=== PATIENT | female | born 1995 | race Caucasian/White ===

== ENCOUNTER → 2021-07-21 | Outpatient (CLI) | payer BC ==
--- NOTE | 2021-07-21 18:08 | Diagnostic Imaging Report ---
INDICATION: Supervision of normal . Anatomy scan. TECHNIQUE: Multiple real-time grayscale images were obtained over the gravid uterus. COMPARISON: None FINDINGS: A single live intrauterine gestation is visualized in cephalic presentation. heart tones measure 149 BPM. The placenta is anterior/fundal. The amniotic fluid is visually normal, although no measurements were performed. The kidneys, bladder, stomach, brain, four-chamber heart, three-vessel cord, spine, and cord insertion are visualized and have a normal appearance. Cervical length measures 3.7 cm. Biometrical measurements are as follows: Biparietal 5.33 cm, age 22 weeks 2 days. Head circumference 19.26 cm, age 21 weeks 4 days. Abdominal circumference 15.44 cm, age 20 weeks 5 days. Femur length 3.36 cm, age 20 weeks 4 days. Sonographic estimate age: 21 weeks 2 days. Sonographic estimated date of delivery: 11/29/2021. Estimated Weight: 373 gm (+/- 55 gm). LMP percentile: 54%. heart rate: 149 beats per minute. number: 1 of 1. IMPRESSION: 1. Single live intrauterine gestation measuring 21 weeks 2 days with an estimated due date of 11/29/2021. These are within range with the clinical dates. Recommend continued follow-up as indicated. 2. No anatomic abnormalities are identified on this exam. Dictated by: Dictated on workstation # [id number]
== END ==
LOC: RAD 15:00
PROVIDERS: ATTEND Obstetrics & Gynecology
DX: Z34.02 Encounter for supervision of normal first pregnancy, second trimester (principal); Z3A.21 21 weeks gestation of pregnancy
CPT/HCPCS: 76805

== ENCOUNTER 2021-11-17 18:27 | Inpatient (IN) | payer BC ==
[~2021-11-17] VITALS: Ht 160 cm; Wt 97.7 kg
[2021-11-17] VITALS (21 sets, daily range): BP systolic 99–177; BP diastolic 58–90
[2021-11-17 19:25] LABS: BASOPHILS % (AUTO) 0 % (0-10); EOSINOPHILS # (AUTO) 0.1 10^3/uL (0.0-0.3); EOSINOPHILS % (AUTO) 0 % (0-10); HEMATOCRIT 35 % (35-52); LYMPHOCYTES # (AUTO) 1.7 10^3/uL (1.0-4.0); LYMPHOCYTES % (AUTO) 15 % (12-44); MEAN CORPUSCULAR HEMOGLOBIN 30 pg (25-34); MEAN CORPUSCULAR HGB CONC 35 g/dL (32-36); MEAN CORPUSCULAR VOLUME 87 fL (80-99); MEAN PLATELET VOLUME 8.8 fL (9.0-12.2); MONOCYTES # (AUTO) 0.6 10^3/uL (0.0-1.0); MONOCYTES % (AUTO) 5 % (0-12); NEUTROPHILS # (AUTO) 8.7 10^3/uL (1.8-7.8); NEUTROPHILS % (AUTO) 78 % (42-75); PLATELET COUNT 287 10^3/uL (130-400); WHITE BLOOD COUNT 11.2 10^3/uL (4.3-11.0)
[2021-11-17] MEDS: D5 LR IV SOLUTION 1,000 ML IV SCH (19:38)
[2021-11-17] MEDS ORDERED: BUPIVACAINE 0.25% 30 ML (SENSORCAINE) VIAL ONE ×2 (21:20→22:22)
[2021-11-17] MEDS ORDERED: fentaNYL INJ 100 MCG/2 ML AMP ONE ×3 (21:20→22:31)
[2021-11-17] MEDS ORDERED: OXYTOCIN PRE-MIX DRIP 500 ML IV ONE ×2 (21:49→23:42)
[2021-11-17] MEDS ORDERED: LIDOCAINE/EPI 2% 1:200,00 (XYLOCAINE) 10 ML VIAL ONE (21:49)
[2021-11-17] MEDS ORDERED: CATHETER FLUSH 10 ML SYR IV SCH (22:00)
[2021-11-17] MEDS ORDERED: fentaNYL 2 mcg/ml BUPIVA 0.125 0 ML ONE (22:24)
[2021-11-17] MEDS: OXYTOCIN PRE-MIX DRIP 500 ML IV SCH ×2 (23:00→23:50)
[2021-11-17] MEDS ORDERED: METHYLERGONOVINE 0.2 MG/ML (METHERGINE) AMP ONE (23:24)
[2021-11-17] MEDS ORDERED: DIBUCAINE 1% OINTMENT 30 GM TUBE TOP PRN (23:30)
[2021-11-17] MEDS ORDERED: WITCH HAZEL(TUCKS) 40 EA JAR TOP PRN (23:30)
[2021-11-17] MEDS ORDERED: BENZOCAINE/MENTHOL (DERMOPLAST) 56 ML CAN TP PRN (23:30)
[2021-11-17] MEDS ORDERED: TETANUS,DIPTH,PERTUSS P/F (BOOSTRIX) 0.5 ML VIAL IM ONE (23:30)
[2021-11-17] MEDS ORDERED: MEASLES,MUMPS,RUBELLA 1 EA INJ SQ ONE (23:30)
[2021-11-17] MEDS ORDERED: NALOXONE 0.4 MG/ML 1 ML (NARCAN) VIAL IV PRN (23:30)
[2021-11-18] VITALS (9 sets, daily range): BP systolic 114–158; BP diastolic 58–90
[2021-11-18] MEDS ORDERED: ONDANSETRON 4 MG/2 ML (SDV) Z0FRAN ONE (00:02)
--- NOTE | 2021-11-18 00:47 | History & Physical-OB ---
OB - Chief Complaint & HPI Date/Time Date of Admission: Date of Admission: Nov 17, 2021 at 18:27 Date seen by a Provider: Nov 17, 2021 Time Seen by a Provider: 16:00 Chief Complaint/History OB-Reason for Admission/Chief: Onset of Labor Hx : 1 Hx Para: 0 Expected Date of Delivery: Dec 04, 2021 Gestational Age in Weeks: 37 Gestational Age in Days: 4 Admission Nurse Assessment Rev: Yes Allergies and Home Medications Allergies Coded Allergies: amoxicillin (Verified Allergy, Mild, Rash, 11/17/21) Patient Home Medication List Home Medication List Reviewed: Yes OB - History Hx of Present Care: Yes Ultrasounds: Normal mid trimester US Obstetrical Complications: None Medical Complications: None Patient Past Medical History n/a OB - Admission Exam Physical Exam Vitals: Vital Signs 11/17/21 19:00 Temp 36.8 Pulse 120 Resp 18 B/P (MAP) 128/86 (100) O2 Delivery Room Air HEENT: NCAT Heart: Rhythm Normal Lungs: Clear Abdomen: Gravid Extremities: Normal Reflexes: Normal Cervical Dilatation: 6cm Effacement: 75% Station: -1 Membranes: Intact Heart Rate: 130's Accelerations: Accelerations Present Decelerations: No Decelerations Short Term Variability: Present Apparel Fashion Designer Variability: Average (6-25) Contractions on Admission: 6-10 Minutes Apart Intensity: Mild Labs Laboratory Tests Test 11/17/21 19:10 Range/Units White Blood Count 11.2 H 4.3-11.0 10^3/uL Red Blood Count 3.99 3.80-5.11 10^6/uL Hemoglobin 12.0 11.5-16.0 g/dL Hematocrit 35 35-52 % Mean Corpuscular Volume 87 80-99 fL Mean Corpuscular Hemoglobin 30 25-34 pg Mean Corpuscular Hemoglobin Concent 35 32-36 g/dL Red Cell Distribution Width 12.4 10.0-14.5 % Platelet Count 287 130-400 10^3/uL Mean Platelet Volume 8.8 L 9.0-12.2 fL Immature Granulocyte % (Auto) 1 % Neutrophils (%) (Auto) 78 H 42-75 % Lymphocytes (%) (Auto) 15 12-44 % Monocytes (%) (Auto) 5 0-12 % Eosinophils (%) (Auto) 0 0-10 % Basophils (%) (Auto) 0 0-10 % Neutrophils # (Auto) 8.7 H 1.8-7.8 10^3/uL Lymphocytes # (Auto) 1.7 1.0-4.0 10^3/uL Monocytes # (Auto) 0.6 0.0-1.0 10^3/uL Eosinophils # (Auto) 0.1 0.0-0.3 10^3/uL Basophils # (Auto) 0.0 0.0-0.1 10^3/uL Immature Granulocyte # (Auto) 0.1 0.0-0.1 10^3/uL OB - Assessment/Plan/Diagnosis Assessment Assessment: active labor Admission Dx 25 yo @ 37 weeks Active labor GBS neg Admission Status: Inpatient Order (span 2 midnights) Reason for Inpatient Admission: Active labor at 37 weeks Plan Plan: Expectant Management TAL JACOME DO Nov 18, 2021 00:46
[2021-11-18] MEDS ORDERED: ACETAMINOPHEN 500 MG TAB (TYLENOL) PO PRN (01:00)
[2021-11-18] MEDS ORDERED: IBUPROFEN 600 MG (MOTRIN) TAB PO ONE (01:23)
[2021-11-18] MEDS ORDERED: BENZOCAINE/MENTHOL (DERMOPLAST) 56 ML CAN TP ONE (01:23)
[2021-11-18] MEDS ORDERED: ACETAMINOPHEN 500 MG TAB (TYLENOL) ONE (01:24)
[2021-11-18] MEDS: IBUPROFEN 600 MG (MOTRIN) TAB PO SCH ×4 (01:30→21:46)
[2021-11-18] MEDS: ACETAMINOPHEN 500 MG TAB (TYLENOL) PO SCH ×4 (01:30→21:46)
[2021-11-18] MEDS: D5 LR IV SOLUTION 1,000 ML IV SCH (02:45)
[2021-11-18] MEDS ORDERED: ONDANSETRON 4 MG/2 ML (SDV) Z0FRAN IVP PRN (03:45)
[2021-11-18] MEDS ORDERED: METHYLERGONOVINE 0.2 MG/ML (METHERGINE) AMP IM ONE (03:45)
[2021-11-18] MEDS ORDERED: CATHETER FLUSH 10 ML SYR IV SCH (06:00)
[2021-11-18 06:10] LABS: BASOPHILS % (AUTO) 0 % (0-10); EOSINOPHILS % (AUTO) 0 % (0-10); HEMATOCRIT 34 % (35-52); HEMOGLOBIN 11.6 g/dL (11.5-16.0); LYMPHOCYTES # (AUTO) 1.6 10^3/uL (1.0-4.0); LYMPHOCYTES % (AUTO) 9 % (12-44); MEAN CORPUSCULAR HEMOGLOBIN 31 pg (25-34); MEAN CORPUSCULAR HGB CONC 34 g/dL (32-36); MEAN CORPUSCULAR VOLUME 89 fL (80-99); MONOCYTES % (AUTO) 6 % (0-12); NEUTROPHILS # (AUTO) 14.5 10^3/uL (1.8-7.8); NEUTROPHILS % (AUTO) 84 % (42-75); PLATELET COUNT 250 10^3/uL (130-400); WHITE BLOOD COUNT 17.3 10^3/uL (4.3-11.0)
--- NOTE | 2021-11-18 08:52 | OB Labor & Delivery Record ---
L&D History Date of Service Date of Service: Nov 18, 2021 History Expected Date of Delivery: Dec 04, 2021 Gestational Age in Weeks: 37 Hx : 1 Hx Para: 0 Complications Events: Routine care Operative Indications (Cesarea: N/A-Vaginal Delivery Intrapartal Events: None L&D Stage1 Stage One Onset of Labor - Date: Nov 18, 2021 Monitors and Tracing Monitor Mode: External Heart Rate: 125 Monitor Decelerations: Variable Penitentiary Variability: Average (6-10) Short Term Variability: Present Presentation: Vertex Vital Signs VS - Last 72 Hours, by Label 11/17/21 11/17/21 11/17/21 11/17/21 19:00 19:40 21:30 22:30 Temp 36.8 36.8 36.9 Pulse 120 120 111 Resp 18 18 18 B/P (MAP) 128/86 (100) 155/68 (97) Pulse Ox 100 100 O2 Delivery Room Air Room Air Room Air 11/17/21 11/17/21 11/17/21 11/17/21 22:37 22:45 22:47 22:48 Pulse 105 101 100 90 Resp 18 18 18 18 B/P (MAP) 161/90 (113) 132/76 (94) 125/73 (90) 128/80 (96) Pulse Ox 99 99 99 99 O2 Delivery Room Air Room Air Room Air Room Air 11/17/21 11/17/21 11/17/21 11/17/21 22:51 22:55 22:58 23:00 Temp 36.8 Pulse 89 102 96 85 Resp 18 18 18 18 B/P (MAP) 130/78 (95) 123/83 (96) 133/76 (95) 131/73 (92) Pulse Ox 98 100 100 100 O2 Delivery Room Air Room Air Room Air Room Air 11/17/21 11/17/21 11/17/21 11/17/21 23:05 23:11 23:14 23:23 Pulse 90 110 150 131 Resp 18 18 18 18 B/P (MAP) 133/71 (91) 135/73 (93) 133/70 (91) 99/65 (76) Pulse Ox 100 100 100 O2 Delivery Room Air Room Air Room Air Room Air 11/17/21 11/17/21 11/17/21 11/17/21 23:25 23:34 23:39 23:47 Pulse 121 121 126 116 Resp 18 18 18 18 B/P (MAP) 113/61 (78) 177/90 (119) 113/74 (87) 144/63 (90) O2 Delivery Room Air Room Air Room Air Room Air 11/17/21 11/17/21 11/18/21 11/18/21 23:50 23:56 00:02 00:19 Pulse 133 112 117 95 Resp 18 18 18 18 B/P (MAP) 147/76 (99) 117/58 (77) 150/63 (92) 114/86 (95) O2 Delivery Room Air Room Air Room Air Room Air 11/18/21 11/18/21 11/18/21 11/18/21 00:34 01:04 01:19 06:22 Temp 36.7 Pulse 87 117 107 89 Resp 18 18 18 18 B/P (MAP) 158/90 (112) 144/86 (105) 130/76 (94) 130/86 (101) Pulse Ox 97 O2 Delivery Room Air Room Air Room Air Room Air Rupture of Membranes Spontaneous Ruture of Membrane: No Amniotic Membrane Rupture Time: 2111 Amniotic Membrane Fluid Desc.: Clear Vaginal Bleeding Description: Normal Show Progress/Notes Patient admitted for active labor at 6cm, AROM performed and progressed to complete rapidly, intrathecal block received. L&D Stage2 Stage Two Stage II Date: Nov 18, 2021 Monitors and Tracing Monitor Mode: External Heart Rate: 125 Penitentiary Variability: Average (6-10) Short Term Variability: Present Position: Right Occiput Anterior Presentation: Vertex Cord Descript/Complications Cord Vessel Description: 3 Vessels Delivery Type Infant Delivery Method: Spontaneous Vaginal Anterior Shoulder: Left Episiotomy/Perineal Laceration Laceraction(s)/Extensions: Yes Episiotomy Description: Vaginal Extension/lac, 1st degree Degree (describe repair) repaired using 3-0 rapide in usual fashion Condition of Infant Delivery 1 minute Comment: 9 5 minute Comment: 9 Notes Live male weight pending Condition of Condition of : Living Exam: No Observed Abnormalities Resuscitation Resuscitation: N/A - Spontaneous Resp L&D Stage3 Stage Three Stage III Date: Nov 18, 2021 Pictocin Pitocin Administration Comment: 30 mu wide open after delivery of placenta Placenta Delivery Placenta Delivery: Spontaneous Delivery Summary Summary Estimated blood loss (mL): 300 Attending at delivery: Tal Medina DO Condition of Delivery Examined: Cervix Examined, Uterus Explored Post Hemorrhage: No Condition of Mother stable Condition of (s) stable TAL JACOME DO Nov 18, 2021 08:52
--- NOTE | 2021-11-18 08:53 | Postpartum Progress Note ---
Note Note Day # 1 Subjective: Patient is without complaints. Ambulating, voiding. Tolerating a regular diet without nausea or vomiting. Normal lochia. Pain is well controlled with oral pain medications. Objective: Physical Exam: General - Alert and oriented, no apparent distress Abdomen - Soft, appropriately tender to palpation, non-distended, fundus firm at umbilicus Extremities - no edema, negative Pepe's bilaterally Assessment: PPD 1 NVD Plan: Routine care. Encourage breast feeding. Encourage ambulation. Ferrous sulfate supplementation. Plan for discharge tomorrow Vitals - Labs Vital Signs - I&O Vital Signs Date Time Temp Pulse Resp B/P (MAP) Pulse Ox O2 Delivery O2 Flow Rate FiO2 11/18/21 06:22 36.7 89 18 130/86 (101) 97 Room Air 11/18/21 01:19 107 18 130/76 (94) Room Air 11/18/21 01:04 117 18 144/86 (105) Room Air 11/18/21 00:34 87 18 158/90 (112) Room Air 11/18/21 00:19 95 18 114/86 (95) Room Air 11/18/21 00:02 117 18 150/63 (92) Room Air 11/17/21 23:56 112 18 117/58 (77) Room Air 11/17/21 23:50 133 18 147/76 (99) Room Air 11/17/21 23:47 116 18 144/63 (90) Room Air 11/17/21 23:39 126 18 113/74 (87) Room Air 11/17/21 23:34 121 18 177/90 (119) Room Air 11/17/21 23:25 121 18 113/61 (78) Room Air 11/17/21 23:23 131 18 99/65 (76) Room Air 11/17/21 23:14 150 18 133/70 (91) 100 Room Air 11/17/21 23:11 110 18 135/73 (93) 100 Room Air 11/17/21 23:05 90 18 133/71 (91) 100 Room Air 11/17/21 23:00 36.8 85 18 131/73 (92) 100 Room Air 11/17/21 22:58 96 18 133/76 (95) 100 Room Air 11/17/21 22:55 102 18 123/83 (96) 100 Room Air 11/17/21 22:51 89 18 130/78 (95) 98 Room Air 11/17/21 22:48 90 18 128/80 (96) 99 Room Air 11/17/21 22:47 100 18 125/73 (90) 99 Room Air 11/17/21 22:45 101 18 132/76 (94) 99 Room Air 11/17/21 22:37 105 18 161/90 (113) 99 Room Air 11/17/21 22:30 111 18 155/68 (97) 100 Room Air 11/17/21 21:30 36.9 11/17/21 19:40 36.8 120 18 100 Room Air 11/17/21 19:00 36.8 120 18 128/86 (100) Room Air I & O 11/18/21 07:00 Intake Total 1000 ml Balance 1000 ml Labs Laboratory Tests 11/17/21 19:10: White Blood Count 11.2H, Red Blood Count 3.99, Hemoglobin 12.0, Hematocrit 35, Mean Corpuscular Volume 87, Mean Corpuscular Hemoglobin 30, Mean Corpuscular Hemoglobin Concent 35, Red Cell Distribution Width 12.4, Platelet Count 287, Mean Platelet Volume 8.8L, Immature Granulocyte % (Auto) 1, Neutrophils (%) (Auto) 78H, Lymphocytes (%) (Auto) 15, Monocytes (%) (Auto) 5, Eosinophils (%) (Auto) 0, Basophils (%) (Auto) 0, Neutrophils # (Auto) 8.7H, Lymphocytes # (Auto) 1.7, Monocytes # (Auto) 0.6, Eosinophils # (Auto) 0.1, Basophils # (Auto) 0.0, Immature Granulocyte # (Auto) 0.1 11/18/21 05:59: White Blood Count 17.3H, Red Blood Count 3.80, Hemoglobin 11.6, Hematocrit 34L, Mean Corpuscular Volume 89, Mean Corpuscular Hemoglobin 31, Mean Corpuscular Hemoglobin Concent 34, Red Cell Distribution Width 12.6, Platelet Count 250, Mean Platelet Volume 9.0, Immature Granulocyte % (Auto) 1, Neutrophils (%) (Auto) 84H, Lymphocytes (%) (Auto) 9L, Monocytes (%) (Auto) 6, Eosinophils (%) ( Auto) 0, Basophils (%) (Auto) 0, Neutrophils # (Auto) 14.5H, Lymphocytes # (Auto) 1.6, Monocytes # (Auto) 1.0, Eosinophils # (Auto) 0.0, Basophils # (Auto) 0.0, Immature Granulocyte # (Auto) 0.1 TAL JACOME DO Nov 18, 2021 08:53
--- NOTE | 2021-11-18 08:54 | Discharge Inst-Women's Service ---
Discharge Inst-Women's Serv Depart Medication/Instructions New, Converted or Re-Newed RX: Transmitted to Pharmacy Final Diagnosis PPD 1 NVD Problems Reviewed?: Yes Consults/Follow Up Additional Follow Up: Yes Orders/Referrals Dr. Jacome in 6 weeks Activity Activity: Activity as Tolerated Driving Instructions: No Driving for 1 Week NO SMOKING: NO SMOKING Nothing Inside Vagina: No Douching, No Horine, No Tampons Diet Discharge Diet: No Restrictions Symptoms to Report to : Bleeding Excessive, Pain Increased, Fever Over 101 Degrees F, Vaginal Bleeding Increase, Questions/Concerns For Any Problems or Questions: Contact Your Physician TAL JACOME DO Nov 18, 2021 08:54
[2021-11-18] MEDS ORDERED: DIBU30OI TOP (08:55)
[2021-11-18] MEDS ORDERED: DOCU100C37 PO (08:55)
[2021-11-18] MEDS ORDERED: IBUP-844 PO (08:55)
[2021-11-18] MEDS ORDERED: BENZ78AE5 TP (08:55)
[2021-11-18] MEDS ORDERED: FERR325T24 PO (08:55)
[2021-11-18] MEDS: PRENATAL VITAMIN 1 EA TAB PO SCH (09:37)
[2021-11-18] MEDS: DOCUSATE SODIUM 100 MG (COLACE) CAP PO SCH ×2 (09:38→21:46)
[2021-11-18] MEDS: FERROUS SULF 325 MG (IRON) TAB PO SCH (09:38)
--- NOTE | 2021-11-18 13:36 | Anesthesia-Regional Post-Op ---
Regional Patient Condition Mental Status: Alert, Oriented x3 Circulation: Same as Pre-Op Headache: Absent Sensation: Full Recovery Motor Block: Absent Post Op Complications Complications None Follow Up Care/Instructions Patient Instructions None needed. Anesthesia/Patient Condition Patient is doing well, no complaints, stable vital signs, no apparent adverse anesthesia problems. No complications reported per nursing. PREMA JOE CRNA Nov 18, 2021 13:36
[2021-11-19] MEDS: ACETAMINOPHEN 500 MG TAB (TYLENOL) PO SCH ×2 (04:17→10:11)
[2021-11-19] MEDS: IBUPROFEN 600 MG (MOTRIN) TAB PO SCH ×2 (04:17→10:10)
[2021-11-19 04:19] VITALS: BP 95/56
--- NOTE | 2021-11-19 09:33 | Postpartum Progress Note ---
Note Note Day # 2 Subjective: Patient is without complaints. Ambulating, voiding. Tolerating a regular diet without nausea or vomiting. Normal lochia. Pain is well controlled with oral pain medications. Physical Exam: General - Alert and oriented, no apparent distress Abdomen - Soft, appropriately tender to palpation, non-distended, fundus firm at umbilicus Extremities - no edema, negative Pepe's bilaterally Assessment: Post- day # 2, status post vaginal delivery. Recovering well, hemodynamically stable Plan: Routine care. Encourage breast feeding. Encourage ambulation. Ferrous sulfate supplementation. Plan for discharge today Vitals - Labs Vital Signs - I&O Vital Signs Date Time Temp Pulse Resp B/P (MAP) Pulse Ox O2 Delivery O2 Flow Rate FiO2 11/19/21 04:19 36.0 62 18 95/56 (69) 97 Room Air 11/18/21 21:44 36.2 73 18 114/58 (76) 98 Room Air 11/18/21 15:54 36.3 77 18 128/72 (90) 97 Room Air 11/18/21 09:40 36.7 89 18 130/86 (101) 97 Room Air KASHIF CELESTE TROLLEY [employer]ER Nov 19, 2021 09:33
[2021-11-19 10:10] VITALS: BP 136/84
[2021-11-19] MEDS: FERROUS SULF 325 MG (IRON) TAB PO SCH (10:10)
[2021-11-19] MEDS: PRENATAL VITAMIN 1 EA TAB PO SCH (10:11)
[2021-11-19] MEDS: DOCUSATE SODIUM 100 MG (COLACE) CAP PO SCH (10:11)
== END 2021-11-19 16:50 | disposition home or self-care (01) | DRG 807 ==
LOC: LDRP 18:27
PROVIDERS: ADMIT Obstetrics & Gynecology; ATTEND Obstetrics & Gynecology
PROC: 10E0XZZ Delivery of Products of Conception, External Approach (ICD-10-PCS; principal; 2021-11-17)
PROC: 0HQ9XZZ Repair Perineum Skin, External Approach (ICD-10-PCS; 2021-11-17)
PROC: 0W8NXZZ Division of Female Perineum, External Approach (ICD-10-PCS; 2021-11-17)
DX: O70.0 First degree perineal laceration during delivery (principal); Z37.0 Single live birth; Z3A.37 37 weeks gestation of pregnancy; Z88.1 Allergy status to other antibiotic agents; Z28.310 Unvaccinated for COVID-19
CPT/HCPCS: 36415; 85025; 86850; 86900; 86901; 99212